=== PATIENT | female | born 1945 | race Caucasian/White ===

== ENCOUNTER → 2016-11-25 | Outpatient (CLI) | payer OTHER ==
[2016-01-24 10:09] VITALS: BP 104/67
--- NOTE | 2016-11-26 10:30 | NM ---
THYROID UPTAKE AND SCAN CLINICAL INDICATION: Multiple nodules. PROCEDURE: The patient received an oral dose of 20.0 mCi of Steffanie-123 and images were obtained at appr oximately 24 hours with markers on the chin and sternal notch. The I-123 uptake in the thyroid gland was calculated based on standard probe measurement at approximately 24 hours. COMPARISON: None FINDINGS: The thyroid gland is normal in position and configuration. Planar view suggests the thyroid is normal in size. Tracer distribution is homogeneous throughout the gland. The 24-hour I-123 thyroid uptake i s 3.5 % (normal = 10-30%). IMPRESSION: 1. 24-hour I-123 thyroid uptake is 3.5 % (normal = 10-30%). 2. Morphologically normal thyroid scan. Reported By:
== END | disposition home or self-care (01) ==
LOC: RAD 09:19
PROVIDERS: ATTEND Internal Medicine
DX: E04.2 Nontoxic multinodular goiter (principal)
CPT/HCPCS: 78014

== ENCOUNTER 2017-04-15 12:20 | Inpatient (IN) | payer OTHER ==
[2017-04-15 15:46] LABS: BASOPHILS % (AUTO) 0.4 % (0.2-1.0); EOSINOPHILS # (AUTO) 0.2 x10^3/uL (0.0-0.2); EOSINOPHILS % (AUTO) 1.5 % (0.9-2.9); HEMATOCRIT 35.1 % (36.0-47.0); HEMOGLOBIN 11.6 g/dL (12.0-16.0); LYMPHOCYTES # (AUTO) 1.4 X10^3/uL (1.3-2.9); LYMPHOCYTES % (AUTO) 11.3 % (21.0-51.0); MEAN CORPUSCULAR HEMOGLOBIN 29.2 pg (27.0-34.0); MEAN CORPUSCULAR VOLUME 88.3 fL (80.0-100.0); MEAN PLATELET VOLUME 9.7 fL (7.4-11.0); MONOCYTES # (AUTO) 0.9 x10^3/uL (0.3-0.8); MONOCYTES % (AUTO) 7.1 % (0.0-13.0); NEUTROPHILS # (AUTO) 9.6 x10^3/uL (2.2-4.8); NEUTROPHILS % (AUTO) 79.7 % (42.0-75.0); PLATELET COUNT 219 X10^3/uL (150.0-450.0); RED BLOOD COUNT 3.97 X10^6/uL (3.5-5.4); RED CELL DISTRIBUTION WIDTH 13.9 % (11.6-16.5)
[2017-04-15 16:05] LABS: ALANINE AMINOTRANSFERASE 22 Units/L (12-78); ALBUMIN 3.4 g/dL (3.4-5.0); ALKALINE PHOSPHATASE 85 Units/L (46-116); ASPARTATE AMINO TRANSFERASE 16 Units/L (15-37); BLOOD UREA NITROGEN 19 mg/dL (7-18); CALCIUM 9.5 mg/dL (8.5-10.1); CARBON DIOXIDE 27.9 mmol/L (21-32); CHLORIDE 100 mmol/L (98-107); COR NA(FOR HYPERGLY) 137 mmol/L (136-145); CREATININE 0.99 mg/dL (0.55-1.02); SODIUM 137 mmol/L (136-145); TOTAL PROTEIN 8.2 g/dL (6.4-8.2); eGFR BLACK RACES > 60 (>60); eGFR NON BLACK RACES 58 (>60)
[2017-04-15 16:06] VITALS: BMI 40.6
[2017-04-15] MEDS: NS 1000 ML 1,000 ML IV SCH (16:22)
[2017-04-15] MEDS: DIFLUCAN 200 MG IV PREMIX* 200 MG/100 ML BAG IV SCH (17:15)
[2017-04-15] MEDS: NexIUM PO SCH (21:55)
[2017-04-15] MEDS ORDERED: KLONOPIN TAB 1 MG PO PRN (22:18)
[2017-04-16] MEDS: NS 1000 ML 1,000 ML IV SCH ×3 (03:26→23:28)
[2017-04-16 06:28] LABS: BASOPHILS # (AUTO) 0.1 X10^3/uL (0.0-0.1); BASOPHILS % (AUTO) 0.6 % (0.2-1.0); EOSINOPHILS # (AUTO) 0.4 x10^3/uL (0.0-0.2); EOSINOPHILS % (AUTO) 2.8 % (0.9-2.9); HEMATOCRIT 33.7 % (36.0-47.0); HEMOGLOBIN 11.1 g/dL (12.0-16.0); LYMPHOCYTES # (AUTO) 2.3 X10^3/uL (1.3-2.9); LYMPHOCYTES % (AUTO) 17.6 % (21.0-51.0); MEAN CORPUSCULAR VOLUME 87.8 fL (80.0-100.0); MEAN PLATELET VOLUME 10.8 fL (7.4-11.0); MONOCYTES # (AUTO) 0.8 x10^3/uL (0.3-0.8); MONOCYTES % (AUTO) 6.2 % (0.0-13.0); NEUTROPHILS # (AUTO) 9.6 x10^3/uL (2.2-4.8); NEUTROPHILS % (AUTO) 72.8 % (42.0-75.0); PLATELET COUNT 206 X10^3/uL (150.0-450.0); RED BLOOD COUNT 3.83 X10^6/uL (3.5-5.4); RED CELL DISTRIBUTION WIDTH 14.1 % (11.6-16.5); WHITE BLOOD COUNT 13.2 X10^3/uL (3.6-10.0)
[2017-04-16 06:49] LABS: ALANINE AMINOTRANSFERASE 24 Units/L (12-78); ALBUMIN 2.9 g/dL (3.4-5.0); ALKALINE PHOSPHATASE 76 Units/L (46-116); ASPARTATE AMINO TRANSFERASE 22 Units/L (15-37); BLOOD UREA NITROGEN 14 mg/dL (7-18); CARBON DIOXIDE 28.5 mmol/L (21-32); CHLORIDE 103 mmol/L (98-107); COR CA(FOR HYPOALB) 9.9 mg/dL (8.5-10.1); SODIUM 141 mmol/L (136-145); TOTAL PROTEIN 7.6 g/dL (6.4-8.2); eGFR BLACK RACES > 60 (>60); eGFR NON BLACK RACES > 60 (>60)
[2017-04-16 07:12] LABS: PLATELET MORPHOLOGY COMMENT NORMAL (NORMAL)
[2017-04-16] MEDS: DIFLUCAN 200 MG IV PREMIX* 200 MG/100 ML BAG IV SCH (09:18)
[2017-04-16] MEDS: NexIUM PO SCH (09:18)
--- NOTE | 2017-04-16 09:40 | DR.UPDATE ---
H&P Update History and Physical Update: WAS SEEN IN THE OFFICE ON 04/15/17. A H&P WAS COMPLETED PRIOR TO ADMISSION. PATIENT HAS BEEN SEEN AND EXAMINED WITH NO CHANGES NEEDED TO H&P. Changes noted: NO Yes with the following:
[2017-04-16] MEDS ORDERED: PHARMACY CONSULT - VANCOMYCIN XX SCH (10:00)
[2017-04-16] MEDS ORDERED: [UNRECOGNIZED DRUG - OTHER] PO SCH (10:15)
[2017-04-16] MEDS ORDERED: PATIENT'S HOME MEDICATION (Aspirin [Aspirin] 1 TAB) PO SCH (10:15)
[2017-04-16] MEDS ORDERED: LORAZEPAM PO SCH (10:15)
[2017-04-16] MEDS ORDERED: ZEAXANTHIN PO SCH (10:15)
[2017-04-16] MEDS ORDERED: VALSARTAN HYDROCHLOROTHIAZIDE PO SCH (10:15)
[2017-04-16] MEDS ORDERED: LUTEIN PO SCH (10:15)
[2017-04-16] MEDS ORDERED: VANCOMYCIN HCL 1 GM VIAL 1 GM in D5W 250 ML IV 250 ML IV SCH (11:00)
[2017-04-16] MEDS ORDERED: GLUCOPHAGE ONE (12:01)
[2017-04-16] MEDS: HYDROCHLOROTHIAZIDE 12.5 MG CAP PO SCH (12:11)
[2017-04-16] MEDS: DIOVAN TAB 160 MG PO SCH (12:11)
[2017-04-16] MEDS: ULTRAM PO PRN (12:12)
[2017-04-16] MEDS: GLUCOPHAGE PO SCH (12:12)
[2017-04-16] MEDS: VITAMIN D3 PO SCH (12:14)
[2017-04-16] MEDS: BENTYL CAP 10 MG PO SCH ×4 (12:14→21:16)
[2017-04-16] MEDS: DESVENLAFAXINE PO SCH (12:17)
[2017-04-16] MEDS: NYSTATIN POWDER TOP SCH ×2 (12:18→21:17)
[2017-04-16] MEDS: FORTAZ or TAZICEF INJ 1 GM in NS 100 ML IV + SPIKE MINIBAG* 100 ML IV SCH ×3 (12:18→21:19)
--- NOTE | 2017-04-16 20:40 | PCM.PROG ---
Progress Note - Progress Note for Day of Date: 04/16/17 - Subjective Subjective: WAS ADMITTED FOR CELLULITIS TO THE RIGHT SIDE ABDOMEN AND GROIN. TODAY, SHE IS ALERT AND ORIENTED, LYING IN BED ON MORNING ROUNDS. SHE CONTINUES WITH SEVERE REDNESS, PURULENT DRAINAGE, AND FOUL ODOR TO ENTIRE RIGHT ABDOMINAL FOLD. PATIENT REPORTS TREATMENT FOR APPROXIMATLY TWO WEEKS WITHOUT IMPROVEMENT. PATIENT REPORTS BURNING SENSATION TO ABDOMEN. SHE IS ALSO NOTED WITH LEFT HIP PAIN FOLLOWING A FALL AT HOME SEVERAL WEEKS AGO. HEART IS REGULAR IN RATE AND RHYTHM. BILATERAL LUNGS ARE CLEAR TO AUSCULTATION. THERE IS NORMAL RANGE OF MOTION NOTED TO ALL EXTREMITIES. HER VITAL SIGNS THIS MORNING ARE 97.5- 88-20-95%-129/60. LABS WERE OBTAINED. ABNORMAL LAB VALUES INCLUDE THE FOLLOWING : WBC 13.2, HGB 11.1, HCT 33.7, ALBUMIN 2.9, GLOBULIN 4.7. TODAY, WE WILL CONTINUE DIFLUCAN 200MG IV DAILY. WE WILL ALSO START NYSTATIN POWDER BID, BENTYL 20MG PO QID, VANCOMYCIN 1GM IV Q12H, AND FORTAZ 1GM IV Q8H. WE WILL CONTINUE WITH CONTINUE WITH WOUND CARE. WE PLAN TO FOLLOW UP WITH AM LABS AND CONTINUE TO MONITOR PATIENT. - Past Medical Family Social History Past Med/Fam/Surg Hx: No changes since H&P Allergies: Allergies No Known Drug Allergies Allergy (Verified 04/15/17 20:29) - Review of Systems ROS: No change since H&P - Vital Signs and I&O's Vital Signs: Temperature 98.6 F Pulse Rate [Right] 80 Respiratory Rate 20 Blood Pressure [Right Arm] 113/61 Blood Pressure 104/67 O2 Sat by Pulse Oximetry 96 Intake and Output: Intake & Output 04/14/17 04/15/17 04/16/17 04/17/17 11:59 11:59 11:59 11:59 Intake Total 1230 840 Output Total 1600 Balance 1230 -760 - Physical Exam Eyes: Normal. negative: Blurred Vision, Diplopia, Discharge, Pain, Redness, Photophobia, Other Ear: Normal. negative: Right, Left, Swelling, Ecchymosis, Hemotypanum, Abrasion , Laceration Nose: Normal. negative: Injected, Discharge, Blood, Other Throat: Normal. negative: Tonsillar Hypertrophy, Red, Exudate, Dry, Other Respiratory: Normal. negative: Right, Left, Generalized, Superior, Inferior, Diminished, Wheezes, Rales, Rhonchi, OTHER Cardiovascular: Normal. negative: Tachycardia, Bradycardia, Irregular, S3, S4, Systolic, Diastolic, Murmur, Edema, Other : Normal. negative: Dysuria, Hematuria, Frequency, Discharge, Testicular Pain , Bleeding, , Other Auscultation: Bowel Sounds: Normal. negative: Bruit, Absent, Increased, Decreased, High Pitched, Other Palpation: Normal Tenderness: RUQ Skin: Red, Tender, Wound (SEVERE REDNESS, PURULENT DRAINAGE, AND FOUL ODOR TO ENTIRE RIGHT ABDOMINAL FOLD. ) Musculoskeletal: Left, Hip, Tender Psychiatric: Normal Mood Description: Calm Affect: Normal Speech Pattern: Clear, Appropriate - Laboratory and Diagnostics Result Diagrams: 04/16/17 05:45 04/16/17 05:45 Labs: 04/15/17 15:15 Groin Gram Stain - Final 04/15/17 15:15 Groin Wound Culture - Preliminary Laboratory WBC 13.2 X10^3/uL (3.6-10.0) H 04/16/17 05:45 RBC 3.83 X10^6/uL (3.5-5.4) 04/16/17 05:45 Hgb 11.1 g/dL (12.0-16.0) L 04/16/17 05:45 Hct 33.7 % (36.0-47.0) L 04/16/17 05:45 MCV 87.8 fL (80.0-100.0) 04/16/17 05:45 MCH 29.0 pg (27.0-34.0) 04/16/17 05:45 MCHC 33.0 g/dL (33.0-35.0) 04/16/17 05:45 RDW 14.1 % (11.6-16.5) 04/16/17 05:45 Plt Count 206 X10^3/uL (150.0-450.0) 04/16/17 05:45 Plt Count Comment Adequate (ADEQUATE) 04/16/17 05:45 MPV 10.8 fL (7.4-11.0) 04/16/17 05:45 Neut % 72.8 % (42.0-75.0) 04/16/17 05:45 Lymph % 17.6 % (21.0-51.0) L 04/16/17 05:45 Howell % 6.2 % (0.0-13.0) 04/16/17 05:45 Eos % 2.8 % (0.9-2.9) 04/16/17 05:45 Baso % 0.6 % (0.2-1.0) 04/16/17 05:45 Neut # 9.6 x10^3/uL (2.2-4.8) H 04/16/17 05:45 Lymph # 2.3 X10^3/uL (1.3-2.9) 04/16/17 05:45 Howell # 0.8 x10^3/uL (0.3-0.8) 04/16/17 05:45 Eos # 0.4 x10^3/uL (0.0-0.2) H 04/16/17 05:45 Baso # 0.1 X10^3/uL (0.0-0.1) 04/16/17 05:45 Absolute Nucleated RBC 0.0 /100WBC 04/16/17 05:45 Plt Clumps, EDTA Rare 04/16/17 05:45 Plt Morphology Comment Normal (NORMAL) 04/16/17 05:45 RBC Morphology Normal (NORMAL) 04/16/17 05:45 Sodium 141 mmol/L (136-145) 04/16/17 05:45 Corrected Sodium TNP 04/16/17 05:45 Potassium 4.4 mmol/L (3.5-5.1) 04/16/17 05:45 Chloride 103 mmol/L (98-107) 04/16/17 05:45 Carbon Dioxide 28.5 mmol/L (21-32) 04/16/17 05:45 BUN 14 mg/dL (7-18) 04/16/17 05:45 Creatinine 0.80 mg/dL (0.55-1.02) 04/16/17 05:45 Est GFR (MDRD) Af Amer > 60 (>60) 04/16/17 05:45 Est GFR (MDRD) Non-Af > 60 (>60) 04/16/17 05:45 Glucose 95 mg/dL (65-99) 04/16/17 05:45 POC Glucose (mg/dL) 113 mg/dL (65-99) H 04/16/17 17:04 Calcium 9.0 mg/dL (8.5-10.1) 04/16/17 05:45 Corrected Calcium 9.9 mg/dL (8.5-10.1) 04/16/17 05:45 Total Bilirubin 0.40 mg/dL (0.2-1.0) 04/16/17 05:45 AST 22 Units/L (15-37) 04/16/17 05:45 ALT 24 Units/L (12-78) 04/16/17 05:45 Alkaline Phosphatase 76 Units/L (46-116) 04/16/17 05:45 Total Protein 7.6 g/dL (6.4-8.2) 04/16/17 05:45 Albumin 2.9 g/dL (3.4-5.0) L 04/16/17 05:45 Globulin 4.7 g/dL (2.5-4.5) H 04/16/17 05:45 Albumin/Globulin Ratio 0.6 Ratio (1.1-2.1) L 04/16/17 05:45 - Plan (1) Candidiasis of skin Status: Acute Plan: DIFLUCAN 200MG IV DAILY, NYSTATIN POWDER BID, CONTINUE TO MONITOR (2) Cellulitis Status: Acute Qualifiers: Site of cellulitis: trunk Site of cellulitis of trunk: abdominal wall Qualified Code(s): L03.311 - Cellulitis of abdominal wall Plan: VANCOMYCIN 1GM IV Q12H, FORTAZ 1GM IV Q8H, WOUND CARE, BENTYL 20MG PO QID AND TORADOL 50MG PO Q6H PRN FOR PAIN, CONTINUE TO MONITOR
[2017-04-16] MEDS ORDERED: AMITRIPTYLINE HCL 75 MG PO SCH (21:00)
[2017-04-16] MEDS ORDERED: LIPITOR TAB 40 MG PO SCH (21:00)
[2017-04-16] MEDS: MAALOX or MYLANTA PO PRN (21:16)
[2017-04-16] MEDS: VANCOMYCIN HCL 1 GM VIAL 1 GM in NS 250 ML IV 250 ML IV SCH (21:18)
[2017-04-17] MEDS: FORTAZ or TAZICEF INJ 1 GM in NS 100 ML IV + SPIKE MINIBAG* 100 ML IV SCH ×2 (05:14→14:38)
[2017-04-17] MEDS: NS 1000 ML 1,000 ML IV SCH (05:35)
[2017-04-17 05:54] LABS: ALANINE AMINOTRANSFERASE 18 Units/L (12-78); ALBUMIN 2.4 g/dL (3.4-5.0); ALKALINE PHOSPHATASE 62 Units/L (46-116); ASPARTATE AMINO TRANSFERASE 12 Units/L (15-37); BLOOD UREA NITROGEN 11 mg/dL (7-18); CALCIUM 8.7 mg/dL (8.5-10.1); CARBON DIOXIDE 28.8 mmol/L (21-32); CHLORIDE 106 mmol/L (98-107); CREATININE 0.79 mg/dL (0.55-1.02); SODIUM 142 mmol/L (136-145); TOTAL PROTEIN 6.5 g/dL (6.4-8.2); eGFR BLACK RACES > 60 (>60); eGFR NON BLACK RACES > 60 (>60)
[2017-04-17 06:07] LABS: BASOPHILS % (AUTO) 0.5 % (0.2-1.0); EOSINOPHILS # (AUTO) 0.3 x10^3/uL (0.0-0.2); EOSINOPHILS % (AUTO) 3.9 % (0.9-2.9); HEMATOCRIT 31.4 % (36.0-47.0); HEMOGLOBIN 10.3 g/dL (12.0-16.0); LYMPHOCYTES # (AUTO) 1.4 X10^3/uL (1.3-2.9); LYMPHOCYTES % (AUTO) 19.4 % (21.0-51.0); MEAN CORPUSCULAR HGB CONC 32.8 g/dL (33.0-35.0); MEAN CORPUSCULAR VOLUME 88.2 fL (80.0-100.0); MEAN PLATELET VOLUME 9.6 fL (7.4-11.0); MONOCYTES # (AUTO) 0.4 x10^3/uL (0.3-0.8); MONOCYTES % (AUTO) 6.2 % (0.0-13.0); PLATELET COUNT 211 X10^3/uL (150.0-450.0); RED BLOOD COUNT 3.56 X10^6/uL (3.5-5.4); WHITE BLOOD COUNT 7.1 X10^3/uL (3.6-10.0)
[2017-04-17] MEDS ORDERED: GLUCOPHAGE ONE (08:36)
[2017-04-17] MEDS ORDERED: ASPIRIN EC 81 MG PO SCH (09:00)
[2017-04-17] MEDS ORDERED: ATIVAN TAB 1 MG PO SCH (09:00)
[2017-04-17] MEDS ORDERED: ELAVIL PO SCH (09:00)
[2017-04-17] MEDS: MAALOX or MYLANTA PO PRN (09:19)
[2017-04-17] MEDS: DIFLUCAN 200 MG IV PREMIX* 200 MG/100 ML BAG IV SCH (09:19)
[2017-04-17] MEDS: HYDROCHLOROTHIAZIDE 12.5 MG CAP PO SCH (09:20)
[2017-04-17] MEDS: BENTYL CAP 10 MG PO SCH ×2 (09:20→13:57)
[2017-04-17] MEDS: GLUCOPHAGE PO SCH (09:20)
[2017-04-17] MEDS: VITAMIN D3 PO SCH (09:20)
[2017-04-17] MEDS: NexIUM PO SCH (09:21)
[2017-04-17] MEDS: VANCOMYCIN HCL 1 GM VIAL 1 GM in NS 250 ML IV 250 ML IV SCH (09:21)
[2017-04-17] MEDS: DIOVAN TAB 160 MG PO SCH (09:21)
[2017-04-17] MEDS: DESVENLAFAXINE PO SCH (09:22)
[2017-04-17] MEDS: NYSTATIN POWDER TOP SCH (09:22)
[2017-04-17] MEDS: ULTRAM PO PRN (09:30)
[2017-04-17 12:52] VITALS: BP 135/61
== END 2017-04-17 15:20 | disposition home or self-care (01) | DRG 603 ==
LOC: MED/SURG 12:20 → UNDOADMOB 12:20 → OBSVTOIN 14:34 → MED/SURG 14:34
PROVIDERS: ADMIT Internal Medicine; ATTEND Internal Medicine
DX: L03.311 Cellulitis of abdominal wall (principal); M25.551 Pain in right hip; B37.2 Candidiasis of skin and nail; E11.65 Type 2 diabetes mellitus with hyperglycemia; I10 Essential (primary) hypertension; I25.10 Atherosclerotic heart disease of native coronary artery without angina pectoris; Z91.81 History of falling
CPT/HCPCS: 36415; 80053; 85025; 87070; 87075; 87205; A4216; A4222; J0713; J1450; J3370

== ENCOUNTER → 2017-05-05 | Outpatient (CLI) | payer OTHER ==
[2017-04-17 12:52] VITALS: BP 135/61
== END ==
LOC: LAB 14:51
PROVIDERS: ATTEND Internal Medicine Gastroenterology
DX: K64.0 First degree hemorrhoids (principal)
CPT/HCPCS: 82270

== ENCOUNTER 2018-01-14 14:44 | Observation (INO) ==
[2018-01-14 17:13] LABS: BASOPHILS % (AUTO) 0.4 % (0.2-1.0); EOSINOPHILS % (AUTO) 0.6 % (0.9-2.9); HEMATOCRIT 28.8 % (36.0-47.0); HEMOGLOBIN 9.8 g/dL (12.0-16.0); LYMPHOCYTES # (AUTO) 1.1 X10^3/uL (1.3-2.9); LYMPHOCYTES % (AUTO) 14.9 % (21.0-51.0); MEAN CORPUSCULAR HEMOGLOBIN 29.3 pg (27.0-34.0); MEAN CORPUSCULAR HGB CONC 34.1 g/dL (33.0-35.0); MEAN CORPUSCULAR VOLUME 85.8 fL (80.0-100.0); MEAN PLATELET VOLUME 8.6 fL (7.4-11.0); MONOCYTES # (AUTO) 0.4 x10^3/uL (0.3-0.8); MONOCYTES % (AUTO) 5.5 % (0.0-13.0); NEUTROPHILS # (AUTO) 5.7 x10^3/uL (2.2-4.8); NEUTROPHILS % (AUTO) 78.6 % (42.0-75.0); PLATELET COUNT 202 X10^3/uL (150.0-450.0); RED BLOOD COUNT 3.35 X10^6/uL (3.5-5.4); RED CELL DISTRIBUTION WIDTH 14.2 % (11.6-16.5); WHITE BLOOD COUNT 7.3 X10^3/uL (3.6-10.0)
[2018-01-14 17:24] LABS: ALANINE AMINOTRANSFERASE 35 Units/L (12-78); ALBUMIN 2.6 g/dL (3.4-5.0); ALKALINE PHOSPHATASE 86 Units/L (46-116); ASPARTATE AMINO TRANSFERASE 35 Units/L (15-37); BLOOD UREA NITROGEN 30 mg/dL (7-18); CALCIUM 8.5 mg/dL (8.5-10.1); CARBON DIOXIDE 37.6 mmol/L (21-32); COR CA(FOR HYPOALB) 9.6 mg/dL (8.5-10.1); CREATININE 2.08 mg/dL (0.55-1.02); MAGNESIUM 3.1 mg/dL (1.7-2.9); TOTAL PROTEIN 6.5 g/dL (6.4-8.2); eGFR NON BLACK RACES 25 (>60)
[2018-01-14 17:44] LABS: B-TYPE NATRIURETIC PEPTIDE 113 pg/mL (0-79)
[2018-01-14 17:48] LABS: CHLORIDE 87 mmol/L (98-107); SODIUM 129 mmol/L (136-145)
[2018-01-14 17:55] VITALS: BMI 37.5
[2018-01-14] MEDS ORDERED: FLUVIRIN IM ONE (17:55)
[2018-01-14] MEDS: NS 1000 ML 1,000 ML IV SCH (18:43)
[2018-01-14] MEDS: KLONOPIN TAB 1 MG PO SCH (20:47)
--- NOTE | 2018-01-14 21:17 | RAD ---
HISTORY: Shortness of breath and weakness Study: Single view of the chest. Comparison: None. Findings: The cardiomediastinal silhouette is normal. No focal consolidations, pleural effusions or pneumothora x. Osseous structures demonstrate no acute abnormality. IMPRESSION: 1. No acute cardiopulmonary process. Reported By:
--- NOTE | 2018-01-14 21:53 | US ---
RENAL ULTRASOUND History: Shortness of breath and weakness Comparison: None Technique: Multiple ramos scale and color flow Doppler images of the kidneys were obtained. The regio n of the urinary bladder was evaluated as well. Findings: The kidneys are normal in echogenicity. The right kidney measures 9.7 cm. No focal mass, hydronephrosis, or stones identified. The left kidney measures 10.2 cm. No focal mass, hydronephrosis, or stone identified. The region of the urinary bladder is grossly unremarkable. IMPRESSION: 1. Unremarkable evaluation of the kidneys. Reported By:
--- NOTE | 2018-01-14 21:54 | VAS ---
CAROTID ULTRASOUND CLINICAL INDICATION: Syncope PROCEDURE: Pulsed wave and color-flow duplex imaging was utilized to evaluate the extracranial caroti d arteries. COMPARISON: None FINDINGS: Right carotid: Plaque at the bifurcation. No hemodynamically significant stenosis involving the right carotid artery . The velocities are as follows: Distal CCA peak systolic velocity 76 cm/sec, ICA peak systolic velocity 107 cm/sec. Flow within the r ight vertebral and right ECA is directed antegrade. ICA/CCA ratio: 0.9 Left carotid: Plaque at the bifurcation.. The velocities are as follows: Distal CCA peak systolic velocity 132 cm/sec, ICA peak systolic velocity 140 cm/sec. Flow within the left vertebral and left ECA is directed antegrade. ICA/CCA ratio: 1.07 IMPRESSION: 1. Normal peak systolic velocity corresponds to a less than 50% diameter stenosis of the right ICA. 2. Mildly increased peak systolic velocity corresponds to a 50-70 % diameter stenosis of the left ICA . Reported By:
[2018-01-14 22:01] LABS: BILIRUBIN,URINE NEGATIVE (NEGATIVE); BLOOD/HEMOGLOBIN,URINE 2+ (NEGATIVE); GLUCOSE, URINE NEGATIVE (NEGATIVE); KETONES,URINE NEGATIVE (NEGATIVE); LEUKOCYTE ESTERASE ,URINE NEGATIVE (NEGATIVE); NITRITES,URINE NEGATIVE (NEGATIVE); PROTEIN,URINE 2+ (NEGATIVE); UROBILINOGEN,URINE NORMAL (NORMAL)
[2018-01-14 22:08] LABS: APPEARANCE,URINE CLEAR (CLEAR); BACTERIA,URINE NEGATIVE /HPF (NEGATIVE); COLOR,URINE PALE YELLOW (YELLOW); SQUAMOUS EPITHELIAL CELL,UR RARE /HPF (NEGATIVE)
[2018-01-14 22:09] LABS: AMORPHOUS SEDIMENT,UR 1+ /HPF (NEGATIVE); RENAL EPITHELIAL CELLS,URINE RARE /HPF (NEGATIVE)
[2018-01-15] MEDS: NS 1000 ML 1,000 ML IV SCH ×4 (00:22→16:21)
[2018-01-15 06:33] LABS: ALANINE AMINOTRANSFERASE 31 Units/L (12-78); ALBUMIN 2.4 g/dL (3.4-5.0); ALKALINE PHOSPHATASE 78 Units/L (46-116); ASPARTATE AMINO TRANSFERASE 33 Units/L (15-37); BLOOD UREA NITROGEN 27 mg/dL (7-18); CARBON DIOXIDE 35.6 mmol/L (21-32); CHLORIDE 93 mmol/L (98-107); COR CA(FOR HYPOALB) 9.3 mg/dL (8.5-10.1); CREATININE 1.74 mg/dL (0.55-1.02); SODIUM 134 mmol/L (136-145); eGFR NON BLACK RACES 30 (>60)
[2018-01-15 06:39] LABS: BASOPHILS % (AUTO) 0.5 % (0.2-1.0); EOSINOPHILS # (AUTO) 0.1 x10^3/uL (0.0-0.2); EOSINOPHILS % (AUTO) 1.4 % (0.9-2.9); HEMOGLOBIN 10.1 g/dL (12.0-16.0); LYMPHOCYTES # (AUTO) 1.1 X10^3/uL (1.3-2.9); LYMPHOCYTES % (AUTO) 18.3 % (21.0-51.0); MEAN CORPUSCULAR HEMOGLOBIN 29.9 pg (27.0-34.0); MEAN CORPUSCULAR HGB CONC 34.9 g/dL (33.0-35.0); MEAN CORPUSCULAR VOLUME 85.7 fL (80.0-100.0); MEAN PLATELET VOLUME 9.1 fL (7.4-11.0); MONOCYTES # (AUTO) 0.3 x10^3/uL (0.3-0.8); MONOCYTES % (AUTO) 5.3 % (0.0-13.0); NEUTROPHILS # (AUTO) 4.6 x10^3/uL (2.2-4.8); NEUTROPHILS % (AUTO) 74.5 % (42.0-75.0); PLATELET COUNT 197 X10^3/uL (150.0-450.0); RED BLOOD COUNT 3.39 X10^6/uL (3.5-5.4); RED CELL DISTRIBUTION WIDTH 14.1 % (11.6-16.5); WHITE BLOOD COUNT 6.1 X10^3/uL (3.6-10.0)
[2018-01-15] MEDS: ATIVAN TAB 1 MG PO SCH (08:21)
--- NOTE | 2018-01-15 11:33 | MRI ---
MRI OF THE BRAIN WITHOUT IV CONTRAST MRA OF THE BRAIN WITHOUT IV CONTRAST CLINICAL INDICATION: Altered mental status and weakness TECHNIQUE: Pre-contrast T1-w, T2, and diffusion-w sequences of the brain with ADC maps. 3-D time-of-f light imaging of the intracranial circulation was performed. COMPARISON: CT head 01/13/2018 FINDINGS: MRI brain: Diffuse patchy and confluent periventricular and subcortical T2/FLAIR signal with associat ed volume loss. There is no mass or mass-effect, or abnormal extra-axial fluid collection. Diffusion imaging shows no hyperacute, acute, or early subacute infarction. Age-related, ex-vacuo dilatation o f the ventricles and sulci. There are normal signal voids in the larger intracranial vessels. The par anasal sinuses and mastoid air cells are predominantly clear. The marrow signal pattern is within nor mal limits. There is no abnormal brain parenchymal or leptomeningeal enhancement. MRA head:The anterior circulation demonstrates normal anatomic findings. The internal carotid artery , M1 segment, and A1 segments do not demonstrates atherosclerotic changes. No aneurysmal changes or evidence for vascular malformation can be identified. The posterior circulation demonstrates a poste rior communicating artery on the right and left. The basal vertebral system is normal in its appeara nce. IMPRESSION: 1. No acute intracranial abnormality. Chronic microangiopathic changes and ex vacuo dilatation of the ventricles and sulci. 2. Normal MRA of the brain. Reported By:
[2018-01-15] MEDS: MAALOX or MYLANTA PO PRN ×2 (12:33→21:25)
[2018-01-15] MEDS ORDERED: FLUVIRIN IM ONE (15:13)
[2018-01-15] MEDS: KLONOPIN TAB 1 MG PO SCH (21:25)
[2018-01-16] MEDS: NS 1000 ML 1,000 ML IV SCH ×2 (01:30→12:58)
[2018-01-16 06:37] LABS: BASOPHILS % (AUTO) 0.6 % (0.2-1.0); EOSINOPHILS # (AUTO) 0.1 x10^3/uL (0.0-0.2); EOSINOPHILS % (AUTO) 1.9 % (0.9-2.9); HEMATOCRIT 27.7 % (36.0-47.0); HEMOGLOBIN 9.3 g/dL (12.0-16.0); LYMPHOCYTES # (AUTO) 1.7 X10^3/uL (1.3-2.9); LYMPHOCYTES % (AUTO) 27.5 % (21.0-51.0); MEAN CORPUSCULAR HEMOGLOBIN 29.1 pg (27.0-34.0); MEAN CORPUSCULAR HGB CONC 33.7 g/dL (33.0-35.0); MEAN CORPUSCULAR VOLUME 86.4 fL (80.0-100.0); MEAN PLATELET VOLUME 9.1 fL (7.4-11.0); MONOCYTES # (AUTO) 0.4 x10^3/uL (0.3-0.8); MONOCYTES % (AUTO) 6.2 % (0.0-13.0); NEUTROPHILS # (AUTO) 3.9 x10^3/uL (2.2-4.8); NEUTROPHILS % (AUTO) 63.8 % (42.0-75.0); PLATELET COUNT 206 X10^3/uL (150.0-450.0); RED BLOOD COUNT 3.21 X10^6/uL (3.5-5.4); RED CELL DISTRIBUTION WIDTH 14.6 % (11.6-16.5); WHITE BLOOD COUNT 6.1 X10^3/uL (3.6-10.0)
[2018-01-16 06:55] LABS: ALANINE AMINOTRANSFERASE 25 Units/L (12-78); ALBUMIN 2.2 g/dL (3.4-5.0); ALKALINE PHOSPHATASE 67 Units/L (46-116); ASPARTATE AMINO TRANSFERASE 24 Units/L (15-37); BLOOD UREA NITROGEN 19 mg/dL (7-18); CALCIUM 7.8 mg/dL (8.5-10.1); CARBON DIOXIDE 31.3 mmol/L (21-32); CHLORIDE 102 mmol/L (98-107); COR CA(FOR HYPOALB) 9.2 mg/dL (8.5-10.1); CREATININE 1.31 mg/dL (0.55-1.02); SODIUM 141 mmol/L (136-145); TOTAL PROTEIN 5.5 g/dL (6.4-8.2); eGFR NON BLACK RACES 42 (>60)
[2018-01-16] MEDS ORDERED: K-RIDER 10 MEQ/NS 100 ML 10 MEQ/100 ML BAG IV PRN (08:15)
[2018-01-16] MEDS ORDERED: MICRO K EXTEN CAP 10 MEQ PO PRN (08:15)
[2018-01-16] MEDS ORDERED: K-DUR TAB 20 MEQ PO PRN (08:15)
[2018-01-16] MEDS ORDERED: KLOR-CON PO PRN (08:15)
[2018-01-16] MEDS ORDERED: POTASSIUM CHL 60 MEQ/NS 0.45% 500 ML IV PRN (08:15)
[2018-01-16] MEDS ORDERED: POTASSIUM CHLORIDE LIQ 20 MEQ UDC PO PRN (08:15)
[2018-01-16] MEDS ORDERED: POTASSIUM CHL 40 MEQ/NS 0.45% 500 ML IV PRN (08:15)
[2018-01-16] MEDS: ATIVAN TAB 1 MG PO SCH (08:49)
[2018-01-16] MEDS ORDERED: PROTONIX INJ 40 MG VIAL IVP SCH (09:00)
[2018-01-16] MEDS ORDERED: BENTYL CAP 10 MG PO SCH (09:00)
[2018-01-16 13:00] VITALS: BP 105/52
--- NOTE | 2018-01-22 08:23 | DR.UPDATE ---
H&P Update History and Physical Update: History and Physical reviewed and patient examined. Changes noted: Yes with the following: presented to the office today for a follow-up visit. Family is with patient. They report that patient has had altered mental status and has been falling at home. They report that she fell twice yesterday. She reports dizziness, headache, and weakness. She was admitted for further evaluation and treatment. A H&P was completed prior to admission. Patient has been seen and examined with no other changes noted to H&P. On admission, we will obtain labs, a carotid Doppler, chest xray, and brain MRI/MRA.
--- NOTE | 2018-01-22 08:35 | PCM.PROG ---
Progress Note - Progress Note for Day of Date of Exam: 01/15/18 - Subjective Subjective: was admitted for AMS, hypotension, and multiple falls. Today, she is alert and oriented, lying in bed on morning rounds. She continues with complaints of weakness and headache. Staff reports that she has been anxious and agitated throughout the night. On examination, heart is regular in rate and rhythm. Bilateral lungs are clear to auscultation. Abdomen is round, soft, and non-tender with normal bowel sounds noted in all quadrants. Lower extremities are noted with trace edema. Her vitals this morning are 97.6-70-20-93%-115/70. She was hypotensive throughout the night with blood pressure running 90s/50s. Labs were obtained. Abnormal lab values include the following: RBC 3.21, HGB 9.3, HCT 27.7, SODIUM 134, POTASSIUM 3.1, CHLORIDE 93, CARBON DIOXIDE 35.6, BUN 27, CREATININE 1.74, CALCIUM 8.0, TOTAL PROTEIN 6.0, ALBUMIN 2.4. A RENAL US WAS OBTAINED ON ADMISSION AND REVEALED: Unremarkable evaluation of the kidneys. A CHEST XRAY WAS OBTAINED AND REVEALED: No acute cardiopulmonary process. CAROTID ARTERY US OBTAINED AND REVEALED: Normal peak systolic velocity corresponds to a less than 50% diameter stenosis of the right ICA. Mildly increased peak systolic velocity corresponds to a 50-70 % diameter stenosis of the left ICA. She is scheduled for a brain MRI/MRA this morning. Otherwise, we will continue with current plan of care. We plan to follow up with AM labs and continue to monitor patient. - Past Medical Family Social History Past Med/Fam/Surg Hx: No changes since H&P Allergies: Allergies No Known Drug Allergies Allergy (Verified 01/21/18 17:40) - Review of Systems ROS: No change since H&P - Vital Signs and I&O's Vital Signs: Temperature 97.9 F Pulse Rate [Right Brachial] 90 Respiratory Rate 18 Blood Pressure [Left Arm] 105/52 Blood Pressure [Right Arm] 117/67 Blood Pressure 128/64 O2 Sat by Pulse Oximetry 95 - Physical Exam Oriented: Normal Eyes: Normal Ear: Normal Nose: Normal Throat: Normal Respiratory: Generalized, Diminished Cardiovascular: Edema (BLE TRACE EDEMA ) : Normal Auscultation: Bowel Sounds: Normal Palpation: Normal Tenderness: Normal Skin: Normal Musculoskeletal: Right, Knee, Back:Lumbar, Tender Psychiatric: Anxiety Mood Description: Anxious Affect: Anxious Speech Pattern: Clear, Appropriate - Laboratory and Diagnostics Result Diagrams: 01/16/18 05:30 01/16/18 13:30 Labs: Laboratory WBC 6.1 X10^3/uL (3.6-10.0) 01/16/18 05:30 RBC 3.21 X10^6/uL (3.5-5.4) L 01/16/18 05:30 Hgb 9.3 g/dL (12.0-16.0) L 01/16/18 05:30 Hct 27.7 % (36.0-47.0) L 01/16/18 05:30 MCV 86.4 fL (80.0-100.0) 01/16/18 05:30 MCH 29.1 pg (27.0-34.0) 01/16/18 05:30 MCHC 33.7 g/dL (33.0-35.0) 01/16/18 05:30 RDW 14.6 % (11.6-16.5) 01/16/18 05:30 Plt Count 206 X10^3/uL (150.0-450.0) 01/16/18 05:30 MPV 9.1 fL (7.4-11.0) 01/16/18 05:30 Neut % (Auto) 63.8 % (42.0-75.0) 01/16/18 05:30 Lymph % (Auto) 27.5 % (21.0-51.0) 01/16/18 05:30 [place] % (Auto) 6.2 % (0.0-13.0) 01/16/18 05:30 Eos % (Auto) 1.9 % (0.9-2.9) 01/16/18 05:30 Baso % (Auto) 0.6 % (0.2-1.0) 01/16/18 05:30 Neut # (Auto) 3.9 x10^3/uL (2.2-4.8) 01/16/18 05:30 Lymph # (Auto) 1.7 X10^3/uL (1.3-2.9) 01/16/18 05:30 [place] # (Auto) 0.4 x10^3/uL (0.3-0.8) 01/16/18 05:30 Eos # (Auto) 0.1 x10^3/uL (0.0-0.2) 01/16/18 05:30 Baso # (Auto) 0.0 X10^3/uL (0.0-0.1) 01/16/18 05:30 Absolute Nucleated RBC 0.0 /100WBC 01/16/18 05:30 D-Dimer 1060 ng/mL (0-400) H* 01/14/18 16:53 Sodium 141 mmol/L (136-145) 01/16/18 05:30 Corrected Sodium TNP 01/16/18 05:30 Potassium 3.4 mmol/L (3.5-5.1) L 01/16/18 13:30 Chloride 102 mmol/L (98-107) 01/16/18 05:30 Carbon Dioxide 31.3 mmol/L (21-32) 01/16/18 05:30 BUN 19 mg/dL (7-18) H 01/16/18 05:30 Creatinine 1.31 mg/dL (0.55-1.02) H 01/16/18 05:30 Est GFR (MDRD) Af Amer 51 (>60) L 01/16/18 05:30 Est GFR (MDRD) Non-Af 42 (>60) L 01/16/18 05:30 Glucose 86 mg/dL (65-99) 01/16/18 05:30 POC Glucose (mg/dL) 87 mg/dL (65-99) 01/16/18 11:31 Calcium 7.8 mg/dL (8.5-10.1) L 01/16/18 05:30 Corrected Calcium 9.2 mg/dL (8.5-10.1) 01/16/18 05:30 Magnesium 2.5 mg/dL (1.7-2.9) 01/16/18 05:30 Total Bilirubin 0.30 mg/dL (0.2-1.0) 01/16/18 05:30 AST 24 Units/L (15-37) 01/16/18 05:30 ALT 25 Units/L (12-78) 01/16/18 05:30 Alkaline Phosphatase 67 Units/L (46-116) 01/16/18 05:30 B-Natriuretic Peptide 113 pg/mL (0-79) H 01/14/18 16:53 Total Protein 5.5 g/dL (6.4-8.2) L 01/16/18 05:30 Albumin 2.2 g/dL (3.4-5.0) L 01/16/18 05:30 Globulin 3.3 g/dL (2.5-4.5) 01/16/18 05:30 Albumin/Globulin Ratio 0.7 Ratio (1.1-2.1) L 01/16/18 05:30 Specimen Type Clean catch urine 01/14/18 21:52 Urine Color Pale yellow (YELLOW) 01/14/18 21:52 Urine Appearance Clear (CLEAR) 01/14/18 21:52 Urine pH 8.0 (5.0 - 8.0) 01/14/18 21:52 Ur Specific [place] 1.015 (1.000-1.030) 01/14/18 21:52 Urine Protein 2+ (NEGATIVE) 01/14/18 21:52 Urine Glucose (UA) Negative (NEGATIVE) 01/14/18 21:52 Urine Ketones Negative (NEGATIVE) 01/14/18 21:52 Urine Occult Blood 2+ (NEGATIVE) 01/14/18 21:52 Urine Nitrite Negative (NEGATIVE) 01/14/18 21:52 Urine Bilirubin Negative (NEGATIVE) 01/14/18 21:52 Urine Urobilinogen Normal (NORMAL) 01/14/18 21:52 Ur Leukocyte Esterase Negative (NEGATIVE) 01/14/18 21:52 Urine RBC 3-5 /HPF (NONE SEEN) 01/14/18 21:52 Urine WBC None seen /HPF (NONE SEEN) 01/14/18 21:52 Ur Squamous Epith Cells Rare /HPF (NEGATIVE) 01/14/18 21:52 Ur Renal Epithelial Cell Rare /HPF (NEGATIVE) 01/14/18 21:52 Amorphous Sediment 1+ /HPF (NEGATIVE) 01/14/18 21:52 Urine Bacteria Negative /HPF (NEGATIVE) 01/14/18 21:52 Ur Culture Indicated? No/not indicated 01/14/18 21:52 - Plan (1) Acute dehydration Status: Acute Plan: NORMAL SALINE, CONTINUE TO MONITOR (2) Altered mental status Status: Acute Qualifiers: Altered mental status type: transient alteration of awareness Qualified Code(s): R40.4 - Transient alteration of awareness Plan: OBTAIN BRAIN MRI/MRA, CONTINUE TO MONITOR (3) Hypotension Status: Acute Qualifiers: Hypotension type: hypotension due to hypovolemia Qualified Code(s): I95.89 - Other hypotension; E86.1 - Hypovolemia Plan: NORMAL SALINE, HOLD B/P MEDS, CONTINUE TO MONITOR (4) Hypokalemia Status: Acute Plan: REPLACEMENT WITH PROTOCOL, CONTINUE TO MONITOR
--- NOTE | 2018-02-16 13:49 | DR.CARTERD ---
- Discharge Summary for: Discharge Summary for Date of:: 01/16/18 - Admission Date Date of Admission: 01/14/18 - Admission Diagnoses Admission Diagnosis: (1) Altered mental status. (2) Hypotension. (3) Acute dehydration. (4) Hypokalemia - Discharge Date Discharge Date: 01/16/18 - Discharge Diagnoses Discharge Diagnosis: 1) Acute dehydration (2) Altered mental status (3) Hypotension (4) Hypokalemia - Hospital Course Hospital Course: Day one, was admitted to the hospital for AMS, hypotension, and multiple falls. Patient was started on IV fluids, mental status and vital signs were monitored. Day two, She was alert and oriented, lying in bed on morning rounds. She continued with complaints of weakness and headache. Staff reported that she had been anxious and agitated throughout the night. On examination, heart is regular in rate and rhythm. Bilateral lungs were clear to auscultation. Abdomen was round, soft, and non-tender with normal bowel sounds noted in all quadrants. Lower extremities were noted with trace edema. Her vitals were 97.6-70-20-93%-115/70. She was hypotensive throughout the night with blood pressure running 90s/50s. Labs were obtained. Abnormal lab values included the following: RBC 3.21, HGB 9.3, HCT 27.7, SODIUM 134, POTASSIUM 3.1, CHLORIDE 93, CARBON DIOXIDE 35.6, BUN 27, CREATININE 1.74, CALCIUM 8.0, TOTAL PROTEIN 6.0, ALBUMIN 2.4. A RENAL US WAS OBTAINED ON ADMISSION AND REVEALED: Unremarkable evaluation of the kidneys. A CHEST XRAY WAS OBTAINED AND REVEALED: No acute cardiopulmonary process. CAROTID ARTERY US OBTAINED AND REVEALED: Normal peak systolic velocity corresponds to a less than 50% diameter stenosis of the right ICA. Mildly increased peak systolic velocity corresponds to a 50-70 % diameter stenosis of the left ICA. She was scheduled for a brain MRI/MRA this morning. Otherwise, we will continue with current plan of care. We plan to follow up with AM labs and continue to monitor patient. Day three, Ms Calderon's symptoms were noted with improvement. Labs significantly improved. Vital signs stable. BP is 105/52. Patient is alert and oriented. We planned for discharge. Instructions for medications and follow up were discussed with patient and family, both voiced understanding. Patient discharged home in stable condition with family. - Discharge Medications Discharge Medications: Home Medication List ciprofloxacin HCl 1 tab PO BID 01/15/18 [History] dicyclomine 20 mg PO BID 01/15/18 [History] tramadol 50 mg PO BID PRN 01/15/18 [History] Prescriptions: Ambulatory Orders Clonazepam [Klonopin tab 2 mg] 2 mg PO HS 02/03/13 Lorazepam [Lorazepam tab 2 mg] 2 mg PO DAILY 02/03/13 Aspirin 1 tab PO DAILY 01/24/16 cholecalciferol (vitamin D3) [Vitamin D3] 2,000 unit PO DAILY 01/24/16 amitriptyline 75 mg PO HS 04/15/17 ondansetron HCl 4 mg PO Q6HR PRN 01/21/18 potassium chloride 10 meq PO DAILY 01/21/18 rosuvastatin 40 mg PO HS 01/21/18 - Discharge Disposition Discharge Disposition: Patient is to follow up in our office in one week.
== END 2018-01-16 15:00 | disposition home or self-care (01) ==
LOC: MED/SURG
PROVIDERS: ADMIT Internal Medicine; ATTEND Internal Medicine
DX: E11.65 Type 2 diabetes mellitus with hyperglycemia; R06.02 Shortness of breath; R53.1 Weakness; R42 Dizziness and giddiness; Z79.899 Other long term (current) drug therapy; G43.009 Migraine without aura, not intractable, without status migrainosus; R29.6 Repeated falls; I95.89 Other hypotension; R79.1 Abnormal coagulation profile; N19 Unspecified kidney failure; R41.82 Altered mental status, unspecified; E86.0 Dehydration; E87.6 Hypokalemia; R26.89 Other abnormalities of gait and mobility; W18.39XA Other fall on same level, initial encounter; Z23 Encounter for immunization; E78.2 Mixed hyperlipidemia; D64.89 Other specified anemias
CPT/HCPCS: 36415; 70544; 70551; 71010; 71045; 76770; 80053; 81001; 83735; 83880; 84132; 85025; 85378; 90686; 93880; 94760; 96367; 96372; 96374; 97163; A4216; A4222; C9113; G0378; J7030

== ENCOUNTER 2018-01-21 17:28 | Observation (INO) ==
--- NOTE | 2018-01-21 18:13 | DR.DIZZY ---
HPI Time seen Time Seen by Provider: 01/21/18 17:51 PCP Primary Care Physician: CINTHIA PERALTA HPI Comment HPI Comment: GENERALIZE WEAKNESS AND NEAR SYNCOPAL FEELING SINCE PATIENT WAS DISCHARGE FROM HOSPITAL RECENTLY. SHF IS DIZZY SOB. THESE ARE WHAT HER FAMUP ON THE FLOOR TODAY.ESTEBAN IS CONCERN ABOUT. SHE WOKE ON THE FLOOR TODAY. Complaint Chief Complaint Doctor Comments: PATIENT IS WEAK AND WOKE UP ON THE FLOOR TODAY. Chief Complaint:: PT D/C FROM [facility] ON THURSDAY AND PT C/O FEELING GOOD , AND THAT Thursday SHE WOKE UP IN THE FLOOR AND SHE THINKS EMT'S TOOK HER TO [facility] OFFICE, PT STATES SHE SAW [facility] OFFICE AND VITALS WERE DONE , AND THEY SEND ME AWAY, BUT PT STATES " THIS ALL STARTED B/C I TOLD MY FRIEND OF FACE BOOK I DID NOT FEEL GOOD SO SHE CALLED [facility] AND THEY TOLD ME TO COME HERE. BR Self Treatment fo Chief Complaint: PT DENIES WEAKNESS, PTS SPEECH IS CLEAR, PT IS WALKING WITH HER WALKER , Source History Provided: Patient Mode of Arrival Mode of Arrival: Ambulatory Timing Onset of Chief Complaint: 01/19/18 Came on: Gradually Duration Duration: Constant Duration: Days Location of Weakness Weakness Location: Generalized Context Onset: With light exertion History of: None Stroke Symptoms: Dizziness Severity Severity: Abnormal activity level Modifying factors Worsens: Nothing Associated signs and symptoms Associated Signs and Symptoms: Near Syncope and Weak PMH PMH Past Medical History: Yes Past Medical History: Coronary Artery Disease, Diabetes and Hypertension Past Surgical History: Yes Surgical History: Cholecystectomy, Joint Replacement, Tonsillectomy and Other Family History History of Family Medical Conditions: Yes Family Medical History: Diabetes Mellitus, Cancer, Coronary Artery Disease and Hypertension Social History Does patient currently use any type of tobacco product: No Have you used tobacco products in the last 12 months: No Type of Tobacco Use: None Does any household member use tobacco: No Alcohol Use: None Do you use any recreational Drugs:: No Lives With: Family Lives Where: Home infectious screening In the last 2 months have you had wt loss of >10#?: NO Have you had fever, night sweats or hemotysis?: No Have you traveled outside the country in the last 6 months?: No Isolation: Standard ROS Review of Systems Constitutional: No Symptoms Reported Eyes: No Symptoms Reported ENTM: No Symptoms Reported Respiratoy: No Symptoms Reported Cardiovascular: Syncope (NEAR SYNCOPE.) Gastrointestinal/Abdominal: No Symptoms Reported Genitourinary: No Symptoms Reported Neurological: Headache, Weakness and Dizziness Musculoskeletal: No Symptoms Reported Integumentary: No Symptoms Reported Hematologic/Lymphatic: No Symptoms Reported Endocrine: No Symptoms Reported Psychiatric: No Symptoms Reported All Other Systems: Reviewed and Negative PE Vital Signs Vitals: Temperature 99.0 F Pulse Rate [Right] 76 Pulse Rate 96 Respiratory Rate 18 Blood Pressure [Left Arm] 131/85 Blood Pressure [Right Arm] 111/50 Blood Pressure 107/55 O2 Sat by Pulse Oximetry 96 General Limitations: No Limitations General Appearance: Alert and In No Apparent Distress Head Head Exam: Normal Inspection, Atraumatic and Normocephalic Eyes Eye exam: Normal Appearance and PERRL; negative Scleral Icterus and Conjunctival Injection Pupils: Regular, Round: Bilateral Sclera/Conjunctival: Normal Inspection: Bilateral and Hemorrhage: Bilateral ENT ENT Exam: Normal Exam Neck Neck Exam: Normal Inspection Chest Chest Inspection: Normal Inspection Respiratory Respiratory Exam: Normal Lung Sounds Bilat Respiratory Exam: Bilateral: Clear to Auscultation Cardiovascular Cardiovascular Exam: Regular Rate Abdominal Exam Abdominal Exam: Normal Inspection Rectal Rectal Exam: Deferred Extremeties Extremities Exam: Normal Inspection Back Back Exam: Normal Inspection Neurologic Neurological Exam: Alert, Oriented X3 and CN II-XII Intact; negative Motor Sensory Deficit Patient Oriented To: Person, Place and Time Cranial Nerve Exam: EOM Function (II, III, IV, ): Normal, Facial Sensation (V): Normal, Facial Palsy (VII): Normal, Gag reflex (XI): Normal and Spinal Accessory Function (XI): Normal Motor Strength - LUE: 5/5 Motor Strength - RUE: 5/5 Motor Strength - LLE: 5/5 Motor Strength - RLE: 5/5 Upper Motor Neuron Exam: Babinski Sign: Normal Skin Skin Exam: Intact MDM Differential Diagnosis Differential Diagnosis: Anemia, CVA, Dehydration, Dysrhythmia, Electrolyte disorder, Hypoglycemia, Myocardial infarction, Pulmonary embolus, TIA and Central Vertigo COURSE Treatment Treatment: SEE ORDERS. Education/Counseling Education/Counseling: Patient Educated On: Diagnosis ROR Labs Reviewed Laboratory Results Reviewed?: Yes Result Diagrams: 01/23/18 05:23 01/23/18 10:48 Laboratory: WBC 7.9 X10^3/uL (3.6-10.0) 01/23/18 05:23 RBC 3.43 X10^6/uL (3.5-5.4) L 01/23/18 05:23 Hgb 10.0 g/dL (12.0-16.0) L 01/23/18 05:23 Hct 29.6 % (36.0-47.0) L 01/23/18 05:23 MCV 86.2 fL (80.0-100.0) 01/23/18 05:23 MCH 29.1 pg (27.0-34.0) 01/23/18 05:23 MCHC 33.8 g/dL (33.0-35.0) 01/23/18 05:23 RDW 14.7 % (11.6-16.5) 01/23/18 05:23 Plt Count 225 X10^3/uL (150.0-450.0) 01/23/18 05:23 MPV 8.6 fL (7.4-11.0) 01/23/18 05:23 Neut % (Auto) 81.2 % (42.0-75.0) H 01/23/18 05:23 Lymph % (Auto) 11.3 % (21.0-51.0) L 01/23/18 05:23 [place]lee % (Auto) 6.7 % (0.0-13.0) 01/23/18 05:23 Eos % (Auto) 0.5 % (0.9-2.9) L 01/23/18 05:23 Baso % (Auto) 0.3 % (0.2-1.0) 01/23/18 05:23 Neut # (Auto) 6.4 x10^3/uL (2.2-4.8) H 01/23/18 05:23 Lymph # (Auto) 0.9 X10^3/uL (1.3-2.9) L 01/23/18 05:23 Greenlee # (Auto) 0.5 x10^3/uL (0.3-0.8) 01/23/18 05:23 Eos # (Auto) 0.0 x10^3/uL (0.0-0.2) 01/23/18 05:23 Baso # (Auto) 0.0 X10^3/uL (0.0-0.1) 01/23/18 05:23 Absolute Nucleated RBC 0.0 /100WBC 01/23/18 05:23 Sodium 137 mmol/L (136-145) 01/23/18 05:23 Corrected Sodium 138 mmol/L (136-145) 01/23/18 05:23 Potassium 3.7 mmol/L (3.5-5.1) 01/23/18 10:48 Chloride 100 mmol/L (98-107) 01/23/18 05:23 Carbon Dioxide 29.1 mmol/L (21-32) 01/23/18 05:23 BUN 14 mg/dL (7-18) 01/23/18 05:23 Creatinine 1.18 mg/dL (0.55-1.02) H 01/23/18 05:23 Est GFR (MDRD) Af Amer 58 (>60) L 01/23/18 05:23 Est GFR (MDRD) Non-Af 48 (>60) L 01/23/18 05:23 Glucose 124 mg/dL (65-99) H 01/23/18 05:23 POC Glucose (mg/dL) 123 mg/dL (65-99) H 01/23/18 15:55 Calcium 8.0 mg/dL (8.5-10.1) L 01/23/18 05:23 Corrected Calcium 9.4 mg/dL (8.5-10.1) 01/23/18 05:23 Magnesium 1.7 mg/dL (1.7-2.9) 01/23/18 05:23 Total Bilirubin 0.30 mg/dL (0.2-1.0) 01/23/18 05:23 AST 23 Units/L (15-37) 01/23/18 05:23 ALT 25 Units/L (12-78) 01/23/18 05:23 Alkaline Phosphatase 69 Units/L (46-116) 01/23/18 05:23 Creatine Kinase 187 Units/L (26-192) 01/21/18 21:45 CK-MB (CK-2) 1.2 ng/mL (0-4.0) 01/21/18 21:45 CK/CKMB % Calc 0.6 % (<4) 01/21/18 21:45 Troponin I < 0.02 ng/mL (0-1.5) 01/21/18 21:45 Total Protein 6.1 g/dL (6.4-8.2) L 01/23/18 05:23 Albumin 2.3 g/dL (3.4-5.0) L 01/23/18 05:23 Globulin 3.8 g/dL (2.5-4.5) 01/23/18 05:23 Albumin/Globulin Ratio 0.6 Ratio (1.1-2.1) L 01/23/18 05:23 Triglycerides 66 mg/dL (0-150) 01/22/18 05:43 Cholesterol 122 mg/dL (0-200) 01/22/18 05:43 LDL Cholesterol, Calc 51 mg/dL (0-100) 01/22/18 05:43 HDL Cholesterol 58 mg/dL (40-60) 01/22/18 05:43 Cholesterol/HDL Ratio 2.1 (0.0-5.0) 01/22/18 05:43 Specimen Type Clean catch urine 01/21/18 20:37 Urine Color Yellow (YELLOW) 01/21/18 20:37 Urine Appearance Clear (CLEAR) 01/21/18 20:37 Urine pH 7.0 (5.0 - 8.0) 01/21/18 20:37 Ur Specific [place] 1.015 (1.000-1.030) 01/21/18 20:37 Urine Protein 4+ (NEGATIVE) 01/21/18 20:37 Urine Glucose (UA) Negative (NEGATIVE) 01/21/18 20:37 Urine Ketones 1+ (NEGATIVE) 01/21/18 20:37 Urine Occult Blood 4+ (NEGATIVE) 01/21/18:37 Urine Nitrite Negative (NEGATIVE) 01/21/18 20:37 Urine Bilirubin Negative (NEGATIVE) 01/21/18 20:37 Urine Urobilinogen 1+ (NORMAL) 01/21/18 20:37 Ur Leukocyte Esterase Negative (NEGATIVE) 01/21/18 20:37 Urine RBC 5-10 /HPF (NONE SEEN) 01/21/18 20:37 Urine WBC 3-5 /HPF (NONE SEEN) 01/21/18 20:37 Ur Squamous Epith Cells Numerous /HPF (NEGATIVE) 01/21/18 20:37 Ur Renal Epithelial Cell Few /HPF (NEGATIVE) 01/21/18 20:37 Urine Bacteria 1+ /HPF (NEGATIVE) 01/21/18 20:37 Ur Culture Indicated? No/not indicated 01/21/18 20:37 XRAY XRAY Findings: REPORT NOTED. EKG Rhythm: NSR Instructions Instructions: Near-Syncope, [id number] Dehydration, Adult Forms: Patient Portal
[2018-01-21 18:47] LABS: BASOPHILS % (AUTO) 0.6 % (0.2-1.0); EOSINOPHILS % (AUTO) 0.5 % (0.9-2.9); HEMATOCRIT 27.8 % (36.0-47.0); HEMOGLOBIN 9.2 g/dL (12.0-16.0); LYMPHOCYTES # (AUTO) 1.5 X10^3/uL (1.3-2.9); LYMPHOCYTES % (AUTO) 17.6 % (21.0-51.0); MEAN CORPUSCULAR HEMOGLOBIN 28.7 pg (27.0-34.0); MEAN CORPUSCULAR VOLUME 86.8 fL (80.0-100.0); MEAN PLATELET VOLUME 8.3 fL (7.4-11.0); MONOCYTES # (AUTO) 0.7 x10^3/uL (0.3-0.8); MONOCYTES % (AUTO) 8.5 % (0.0-13.0); NEUTROPHILS # (AUTO) 6.2 x10^3/uL (2.2-4.8); NEUTROPHILS % (AUTO) 72.8 % (42.0-75.0); PLATELET COUNT 221 X10^3/uL (150.0-450.0); RED CELL DISTRIBUTION WIDTH 15.2 % (11.6-16.5); WHITE BLOOD COUNT 8.6 X10^3/uL (3.6-10.0)
[2018-01-21 18:59] LABS: BLOOD UREA NITROGEN 22 mg/dL (7-18); CALCIUM 8.2 mg/dL (8.5-10.1); CHLORIDE 98 mmol/L (98-107); CREATININE 1.64 mg/dL (0.55-1.02); SODIUM 137 mmol/L (136-145); TROPONIN I 0.08 ng/mL (0-1.5); eGFR NON BLACK RACES 33 (>60)
[2018-01-21 19:03] LABS: ALANINE AMINOTRANSFERASE 23 Units/L (12-78); ALKALINE PHOSPHATASE 75 Units/L (46-116); ASPARTATE AMINO TRANSFERASE 30 Units/L (15-37); CKMB % 0.8 % (<4); CREATINE KINASE 173 Units/L (26-192); CREATINE KINASE MB 1.4 ng/mL (0-4.0); TOTAL PROTEIN 6.6 g/dL (6.4-8.2)
[2018-01-21 19:25] LABS: ALBUMIN 2.7 g/dL (3.4-5.0); COR CA(FOR HYPOALB) 9.2 mg/dL (8.5-10.1)
[2018-01-21 20:54] LABS: BILIRUBIN,URINE NEGATIVE (NEGATIVE); BLOOD/HEMOGLOBIN,URINE 4+ (NEGATIVE); GLUCOSE, URINE NEGATIVE (NEGATIVE); KETONES,URINE 1+ (NEGATIVE); LEUKOCYTE ESTERASE ,URINE NEGATIVE (NEGATIVE); NITRITES,URINE NEGATIVE (NEGATIVE); PROTEIN,URINE 4+ (NEGATIVE); UROBILINOGEN,URINE 1+ (NORMAL)
[2018-01-21 20:59] LABS: APPEARANCE,URINE CLEAR (CLEAR); COLOR,URINE YELLOW (YELLOW)
[2018-01-21 21:00] LABS: BACTERIA,URINE 1+ /HPF (NEGATIVE); RENAL EPITHELIAL CELLS,URINE FEW /HPF (NEGATIVE); SQUAMOUS EPITHELIAL CELL,UR NUMEROUS /HPF (NEGATIVE)
[2018-01-21] MEDS ORDERED: K-LYTE EFFERVESCENT ONE ×2 (21:40→21:55)
[2018-01-21] MEDS: K-LYTE EFFERVESCENT PO ONE (22:04)
[2018-01-21 22:24] LABS: CKMB % 0.6 % (<4); CREATINE KINASE 187 Units/L (26-192); CREATINE KINASE MB 1.2 ng/mL (0-4.0); TROPONIN I < 0.02 ng/mL (0-1.5)
[2018-01-21] MEDS ORDERED: ZOFRAN TAB 4 MG PO PRN (23:47)
[2018-01-22] MEDS: CIPRO TAB 500 MG PO SCH ×3 (00:21→20:58)
[2018-01-22] MEDS: BENTYL CAP 10 MG PO SCH ×3 (00:21→20:58)
[2018-01-22] MEDS: NS 1000 ML 1,000 ML IV SCH (00:21)
[2018-01-22] MEDS: MICRO K EXTEN CAP 10 MEQ PO SCH ×2 (00:22→09:45)
[2018-01-22] MEDS: ATIVAN TAB 1 MG PO PRN ×2 (00:25→20:59)
[2018-01-22 01:44] VITALS: BMI 37.5
[2018-01-22] MEDS ORDERED: ZOFRAN INJ 4 MG VIAL IVP PRN (06:04)
[2018-01-22 06:26] LABS: BASOPHILS % (AUTO) 0.4 % (0.2-1.0); EOSINOPHILS % (AUTO) 0.6 % (0.9-2.9); HEMATOCRIT 24.9 % (36.0-47.0); HEMOGLOBIN 8.5 g/dL (12.0-16.0); LYMPHOCYTES % (AUTO) 15.4 % (21.0-51.0); MEAN CORPUSCULAR HEMOGLOBIN 29.5 pg (27.0-34.0); MEAN CORPUSCULAR HGB CONC 34.3 g/dL (33.0-35.0); MEAN CORPUSCULAR VOLUME 85.9 fL (80.0-100.0); MEAN PLATELET VOLUME 8.5 fL (7.4-11.0); MONOCYTES # (AUTO) 0.6 x10^3/uL (0.3-0.8); MONOCYTES % (AUTO) 8.3 % (0.0-13.0); NEUTROPHILS # (AUTO) 5.1 x10^3/uL (2.2-4.8); NEUTROPHILS % (AUTO) 75.3 % (42.0-75.0); PLATELET COUNT 204 X10^3/uL (150.0-450.0); RED BLOOD COUNT 2.89 X10^6/uL (3.5-5.4); RED CELL DISTRIBUTION WIDTH 14.8 % (11.6-16.5); WHITE BLOOD COUNT 6.8 X10^3/uL (3.6-10.0)
[2018-01-22 06:29] LABS: ALANINE AMINOTRANSFERASE 26 Units/L (12-78); ALBUMIN 2.2 g/dL (3.4-5.0); ALKALINE PHOSPHATASE 66 Units/L (46-116); ASPARTATE AMINO TRANSFERASE 27 Units/L (15-37); BLOOD UREA NITROGEN 17 mg/dL (7-18); CALCIUM 7.8 mg/dL (8.5-10.1); CARBON DIOXIDE 31.8 mmol/L (21-32); CHLORIDE 100 mmol/L (98-107); CHOL/HDL RATIO 2.1 (0.0-5.0); CHOLESTEROL 122 mg/dL (0-200); COR CA(FOR HYPOALB) 9.2 mg/dL (8.5-10.1); CREATININE 1.25 mg/dL (0.55-1.02); HDL CHOLESTEROL 58 mg/dL (40-60); SODIUM 136 mmol/L (136-145); TOTAL PROTEIN 5.6 g/dL (6.4-8.2); TRIGLYCERIDES 66 mg/dL (0-150); eGFR NON BLACK RACES 45 (>60)
[2018-01-22] MEDS ORDERED: PHENERGAN INJ 25 MG IV PRN (07:27)
[2018-01-22] MEDS ORDERED: ASPIRIN PO SCH (09:00)
[2018-01-22] MEDS ORDERED: LORAZEPAM 2 MG PO SCH (09:00)
[2018-01-22] MEDS: VITAMIN D3 PO SCH (09:45)
[2018-01-22] MEDS: ASPIRIN 81 MG CHEWTAB PO SCH (09:45)
[2018-01-22] MEDS: ULTRAM PO PRN ×2 (09:46→21:59)
--- NOTE | 2018-01-22 19:43 | DR.UPDATE ---
H&P Update History and Physical Update: History and Physical reviewed and patient examined. Changes noted: Yes with the following: 'S H&P WAS COMPLETED WITH HER LAST HOSPITAL VISIT ON 01/14/2018. SHE RETURNED TO THE ER WITH THE SAME SYMPTOMS AND REPORTS FALLING AGAIN SINCE SHE LEFT THE HOSPITAL. ON ARRIVAL TO THE ER, VITALS WERE 98.6-96-20-93%-107/55. LABS WERE OBTAINED. ABNORMAL LAB VALUES INCLUDE THE FOLLOWING: RBC 3.20, HGB 9.2, HCT 27.8, POTASSIUM 3.2, BUN 22, CREATININE 1.64, GLUCOSE 105, CALCIUM 8.2, ALBUMIN 2.7. URINALYSIS REVEALED WBC 3-5, RBC 5-10, BACTERIA 1+, LEUKOCYTES NEGATIVE. CARDIAC ENZYMES WITHIN NORMAL LIMITS. EKG REVEALED SINUS RHYTHM WITH HR 83. SHE WAS ADMITTED FOR FURTHER EVALUATION AND TREATMENT. WE PLAN TO FOLLOW UP WITH AM LABS AND CONTINUE TO MONITOR PATIENT.
[2018-01-22] MEDS ORDERED: ROSUVASTATIN 40 MG PO SCH (21:00)
[2018-01-22] MEDS ORDERED: ELAVIL PO SCH (21:00)
[2018-01-22] MEDS ORDERED: CRESTOR TAB 10 MG PO SCH (21:00)
[2018-01-22] MEDS: K-LYTE EFFERVESCENT PO ONE (21:00)
[2018-01-23] MEDS: NS 1000 ML 1,000 ML IV SCH (03:01)
[2018-01-23] MEDS: NORCO 5/325 MG TAB PO PRN ×2 (03:14→11:40)
[2018-01-23 06:09] LABS: BASOPHILS % (AUTO) 0.3 % (0.2-1.0); EOSINOPHILS % (AUTO) 0.5 % (0.9-2.9); HEMATOCRIT 29.6 % (36.0-47.0); LYMPHOCYTES # (AUTO) 0.9 X10^3/uL (1.3-2.9); LYMPHOCYTES % (AUTO) 11.3 % (21.0-51.0); MEAN CORPUSCULAR HEMOGLOBIN 29.1 pg (27.0-34.0); MEAN CORPUSCULAR HGB CONC 33.8 g/dL (33.0-35.0); MEAN CORPUSCULAR VOLUME 86.2 fL (80.0-100.0); MEAN PLATELET VOLUME 8.6 fL (7.4-11.0); MONOCYTES # (AUTO) 0.5 x10^3/uL (0.3-0.8); MONOCYTES % (AUTO) 6.7 % (0.0-13.0); NEUTROPHILS # (AUTO) 6.4 x10^3/uL (2.2-4.8); NEUTROPHILS % (AUTO) 81.2 % (42.0-75.0); PLATELET COUNT 225 X10^3/uL (150.0-450.0); RED BLOOD COUNT 3.43 X10^6/uL (3.5-5.4); RED CELL DISTRIBUTION WIDTH 14.7 % (11.6-16.5); WHITE BLOOD COUNT 7.9 X10^3/uL (3.6-10.0)
[2018-01-23 06:21] LABS: ALBUMIN 2.3 g/dL (3.4-5.0); CARBON DIOXIDE 29.1 mmol/L (21-32); COR CA(FOR HYPOALB) 9.4 mg/dL (8.5-10.1); CREATININE 1.18 mg/dL (0.55-1.02); TOTAL PROTEIN 6.1 g/dL (6.4-8.2)
[2018-01-23] MEDS ORDERED: K-DUR TAB 20 MEQ PO PRN (07:19)
[2018-01-23] MEDS ORDERED: K-RIDER 10 MEQ/NS 100 ML 10 MEQ/100 ML BAG IV PRN (07:19)
[2018-01-23] MEDS ORDERED: POTASSIUM CHLORIDE LIQ 20 MEQ UDC PO PRN (07:19)
[2018-01-23] MEDS ORDERED: MAGNESIUM SULFATE 1 GRAM/100 mL PREMIX 1 GM/100 ML BAG IV PRN (07:19)
[2018-01-23] MEDS ORDERED: KLOR-CON PO PRN (07:19)
[2018-01-23] MEDS ORDERED: MICRO K EXTEN CAP 10 MEQ PO PRN (07:19)
[2018-01-23] MEDS ORDERED: POTASSIUM CHL 60 MEQ/NS 0.45% 500 ML IV PRN (07:19)
[2018-01-23] MEDS ORDERED: POTASSIUM CHL 40 MEQ/NS 0.45% 500 ML IV PRN (07:19)
[2018-01-23] MEDS: BENTYL CAP 10 MG PO SCH (08:00)
[2018-01-23] MEDS: VITAMIN D3 PO SCH (08:01)
[2018-01-23] MEDS: ASPIRIN 81 MG CHEWTAB PO SCH (08:01)
[2018-01-23] MEDS: CIPRO TAB 500 MG PO SCH (08:02)
[2018-01-23] MEDS: MICRO K EXTEN CAP 10 MEQ PO SCH (08:02)
[2018-01-23 17:10] VITALS: BP 131/85
[2018-01-23] MEDS ORDERED: COLACE CAP 100 MG PO SCH (21:00)
[2018-01-24] MEDS ORDERED: MILK OF MAGNESIA PO SCH (09:00)
--- NOTE | 2018-01-29 05:55 | PCM.DCPLAN ---
Discharge Summary - Admission Date Date of Admission: 01/21/18 - Discharge Date Discharge Date: 01/23/18 - Admission Diagnoses (1) Near syncope Status: Acute (2) Anemia Status: Acute (3) Hypokalemia Status: Acute (4) CAD (coronary artery disease) Status: Chronic (5) Diabetes mellitus, type II Status: Chronic - Discharge Diagnoses Discharge Diagnosis: SAME ADMISSION DIAGNOSIS - Discharge Medications Discharge Medications: Home Medication List ondansetron HCl 4 mg PO Q6HR PRN 01/21/18 [History] potassium chloride 10 meq PO DAILY 01/21/18 [History] rosuvastatin 40 mg PO HS 01/21/18 [History] Prescriptions: - Hospital Course Vital Signs: Temperature 99.0 F Pulse Rate [Right] 76 Pulse Rate 96 Respiratory Rate 18 Blood Pressure [Left Arm] 131/85 Blood Pressure [Right Arm] 111/50 Blood Pressure 107/55 O2 Sat by Pulse Oximetry 96 Latest Lab Results: Laboratory Last Values WBC 7.9 X10^3/uL (3.6-10.0) 01/23/18 05:23 RBC 3.43 X10^6/uL (3.5-5.4) L 01/23/18 05:23 Hgb 10.0 g/dL (12.0-16.0) L 01/23/18 05:23 Hct 29.6 % (36.0-47.0) L 01/23/18 05:23 MCV 86.2 fL (80.0-100.0) 01/23/18 05:23 MCH 29.1 pg (27.0-34.0) 01/23/18 05:23 MCHC 33.8 g/dL (33.0-35.0) 01/23/18 05:23 RDW 14.7 % (11.6-16.5) 01/23/18 05:23 Plt Count 225 X10^3/uL (150.0-450.0) 01/23/18 05:23 MPV 8.6 fL (7.4-11.0) 01/23/18 05:23 Neut % (Auto) 81.2 % (42.0-75.0) H 01/23/18 05:23 Lymph % (Auto) 11.3 % (21.0-51.0) L 01/23/18 05:23 [place] % (Auto) 6.7 % (0.0-13.0) 01/23/18 05:23 Eos % (Auto) 0.5 % (0.9-2.9) L 01/23/18 05:23 Baso % (Auto) 0.3 % (0.2-1.0) 01/23/18 05:23 Neut # (Auto) 6.4 x10^3/uL (2.2-4.8) H 01/23/18 05:23 Lymph # (Auto) 0.9 X10^3/uL (1.3-2.9) L 01/23/18 05:23 [place] # (Auto) 0.5 x10^3/uL (0.3-0.8) 01/23/18 05:23 Eos # (Auto) 0.0 x10^3/uL (0.0-0.2) 01/23/18 05:23 Baso # (Auto) 0.0 X10^3/uL (0.0-0.1) 01/23/18 05:23 Absolute Nucleated RBC 0.0 /100WBC 01/23/18 05:23 Sodium 137 mmol/L (136-145) 01/23/18 05:23 Corrected Sodium 138 mmol/L (136-145) 01/23/18 05:23 Potassium 3.7 mmol/L (3.5-5.1) 01/23/18 10:48 Chloride 100 mmol/L (98-107) 01/23/18 05:23 Carbon Dioxide 29.1 mmol/L (21-32) 01/23/18 05:23 BUN 14 mg/dL (7-18) 01/23/18 05:23 Creatinine 1.18 mg/dL (0.55-1.02) H 01/23/18 05:23 Est GFR (MDRD) Af Amer 58 (>60) L 01/23/18 05:23 Est GFR (MDRD) Non-Af 48 (>60) L 01/23/18 05:23 Glucose 124 mg/dL (65-99) H 01/23/18 05:23 POC Glucose (mg/dL) 123 mg/dL (65-99) H 01/23/18 15:55 Calcium 8.0 mg/dL (8.5-10.1) L 01/23/18 05:23 Corrected Calcium 9.4 mg/dL (8.5-10.1) 01/23/18 05:23 Magnesium 1.7 mg/dL (1.7-2.9) 01/23/18 05:23 Total Bilirubin 0.30 mg/dL (0.2-1.0) 01/23/18 05:23 AST 23 Units/L (15-37) 01/23/18 05:23 ALT 25 Units/L (12-78) 01/23/18 05:23 Alkaline Phosphatase 69 Units/L (46-116) 01/23/18 05:23 Creatine Kinase 187 Units/L (26-192) 01/21/18 21:45 CK-MB (CK-2) 1.2 ng/mL (0-4.0) 01/21/18 21:45 CK/CKMB % Calc 0.6 % (<4) 01/21/18 21:45 Troponin I < 0.02 ng/mL (0-1.5) 01/21/18 21:45 Total Protein 6.1 g/dL (6.4-8.2) L 01/23/18 05:23 Albumin 2.3 g/dL (3.4-5.0) L 01/23/18 05:23 Globulin 3.8 g/dL (2.5-4.5) 01/23/18 05:23 Albumin/Globulin Ratio 0.6 Ratio (1.1-2.1) L 01/23/18 05:23 Triglycerides 66 mg/dL (0-150) 01/22/18 05:43 Cholesterol 122 mg/dL (0-200) 01/22/18 05:43 LDL Cholesterol, Calc 51 mg/dL (0-100) 01/22/18 05:43 HDL Cholesterol 58 mg/dL (40-60) 01/22/18 05:43 Cholesterol/HDL Ratio 2.1 (0.0-5.0) 01/22/18 05:43 Specimen Type Clean catch urine 01/21/18 20:37 Urine Color Yellow (YELLOW) 01/21/18 20:37 Urine Appearance Clear (CLEAR) 01/21/18 20:37 Urine pH 7.0 (5.0 - 8.0) 01/21/18 20:37 Ur Specific [place] 1.015 (1.000-1.030) 01/21/18 20:37 Urine Protein 4+ (NEGATIVE) 01/21/18 20:37 Urine Glucose (UA) Negative (NEGATIVE) 01/21/18 20:37 Urine Ketones 1+ (NEGATIVE) 01/21/18 20:37 Urine Occult Blood 4+ (NEGATIVE) 01/21/18 20:37 Urine Nitrite Negative (NEGATIVE) 01/21/18 20:37 Urine Bilirubin Negative (NEGATIVE) 01/21/18 20:37 Urine Urobilinogen 1+ (NORMAL) 01/21/18 20:37 Ur Leukocyte Esterase Negative (NEGATIVE) 01/21/18 20:37 Urine RBC 5-10 /HPF (NONE SEEN) 01/21/18 20:37 Urine WBC 3-5 /HPF (NONE SEEN) 01/21/18 20:37 Ur Squamous Epith Cells Numerous /HPF (NEGATIVE) 01/21/18 20:37 Ur Renal Epithelial Cell Few /HPF (NEGATIVE) 01/21/18 20: Urine Bacteria 1+ /HPF (NEGATIVE) 01/21/18 20:37 Ur Culture Indicated? No/not indicated 01/21/18 20:37 Hospital Course: 72YO FEMALE WHO PRESENTED TO ED AFTER NEAR SYNCOPE EPISODE. PT D/C FROM [facility] ON THURSDAY AND PT C/O FEELING GOOD. THURSDAY MORNING SHE WOKE UP IN THE FLOOR AND SHE THINKS EMT'S TOOK HER TO [facility], PT STATES SHE SAW AMEENA CASILLAS OFFICE AND VITALS WERE DONE. PATIENT WAS ADMITTED. VITALS AND LABS WERE MONITORED WERE TELEMETRY. PATIENT HAD NO OTHER ACUTE EVENTS. WAS AT BASELINE AND FELT STABLE TO DISCHARGE. PATIENT DISCHARGED HOME TO BE FOLLOWED ON OP BASIS. - Discharge Plan Disposition: 01 HOME, SELF-CARE Condition: Stable - Follow ups/Referrals Follow ups/Referrals: MUSA GODDARD [Primary Care Provider] - 1 WEEK - Instructions Instructions: Near-Syncope, [id number], Dehydration, Adult Forms: Patient Portal
== END 2018-01-23 18:55 | disposition home or self-care (01) ==
LOC: OBS 17:30 → ER 17:30 → OBS 23:24 → MED/SURG 01-22 10:46
PROVIDERS: ADMIT Internal Medicine; ATTEND Internal Medicine
DX: R41.82 Altered mental status, unspecified; R06.02 Shortness of breath; I25.10 Atherosclerotic heart disease of native coronary artery without angina pectoris; R94.4 Abnormal results of kidney function studies; M51.36 Other intervertebral disc degeneration, lumbar region; E11.65 Type 2 diabetes mellitus with hyperglycemia; R55 Syncope and collapse; F41.8 Other specified anxiety disorders; M19.90 Unspecified osteoarthritis, unspecified site; R10.31 Right lower quadrant pain; Z91.81 History of falling; R26.89 Other abnormalities of gait and mobility; I10 Essential (primary) hypertension; R94.31 Abnormal electrocardiogram [ECG] [EKG]; N19 Unspecified kidney failure; E87.6 Hypokalemia; I95.89 Other hypotension; E86.0 Dehydration; M50.323 Other cervical disc degeneration at C6-C7 level
CPT/HCPCS: 36415; 70450; 71010; 71045; 72040; 72072; 72100; 74176; 80053; 80061; 81001; 82550; 82553; 83735; 84132; 84484; 85025; 93005; 94760; 96365; 96367; 96374; 97163; 99282; 99284; A4222; G0378; J2405; J2550; J3475; J7030; J8499; S0181